=== PATIENT | male | born 1930 | race Caucasian/White ===

== ENCOUNTER 2016-09-09 12:43 | Emergency (ER) | payer MEDICARE, OTHER ==
[~2016-09-09] VITALS: Ht 172.7 cm; Wt 71.8 kg
[~2016-09-09 12:43] MED LIST: ASPI81TA40 PO; CLOP75TA14 PO; FOLI0.4T2 PO; GLU500 PO; HYDR25TA4 PO; LIP20 PO; LOPRESSOR25 MG PO; MECL-114 PO; NITR0.4T SL; OMEG-5 PO; OMEP20TA86 PO; QUIN10TA PO; advil PO
[2016-09-09 12:44] VITALS: BP 164/74; PULSE 51; RESP 20; O2SAT 95
[2016-09-09 13:02] VITALS: BP 164/67; PULSE 56; RESP 19; O2SAT 99
--- NOTE | 2016-09-09 13:11 | ED.REPORT ---
HPI-Trauma Minor / Fall Date of Service Sep 09, 2016 ED Provider: Ruddy Khan DO The patient is an 86 year old male who presents to the emergency department after he had a ground level fall. The patient was walking when he tripped, and fell backwards over a curb. He hit his head and believes he did lose consciousness. He complains of lower back pain and right elbow pain/swelling. He was able to get himself up and drive home. He denies any other injuries or trauma. He denies dizziness, lightheadedness, numbness, weakness. He is not currently on blood thinners. Nursing Notes Stated Complaint: FALL/HEAD INJURY Chief Complaint: Head, Face, Neck Trauma Nursing Notes Reviewed: Yes Allergies: Coded Allergies: Penicillins (Verified Allergy, Severe, HIVES, 09/09/16) Scheduled ([advil]) 400 MG PO DAILY Aspirin-Expunged Drug, Do Not Renew! (Aspirin-Expunged Drug, Do Not Renew!) 81 Mg Tab.chew 81 MG PO DIRECTED Take every other morning on even number days Atorvastatin (Lipitor) 10 Mg Tab 10 MG PO DAILY Clopidogrel-Expunged Drug, Do Not Renew! (Plavix-Expunged Drug, Do Not Renew!) 75 Mg Tablet 75 MG PO DIRECTED take every morning on odd number days Cyanocobalamin (Vitamin B-12) (Vitamin B-12) 1,000 Mcg Tablet 1,000 MCG PO DIRECTED take in the morning on M,W,F Folic Acid-Expunged Drug, Do Not Renew! (Folic Acid-Expunged Drug, Do Not Renew! ) 0.4 Mg Tablet 0.4 MG PO DAILY Hydrochlorothiazide (Hydrochlorothiazide) 12.5 Mg Tablet 12.5 MG PO DAILY Metformin (Metformin) 500 Mg Tablet 1,000 MG PO QPM Metformin-Expunged Drug, Do Not Renew! (Metformin-Expunged Drug, Do Not Renew!) 500 Mg Tablet 500 MG PO MORNING Metoprolol Tart-Expunged Drug, Do Not Renew! (Metoprolol Tart-Expunged Drug, Do Not Renew!) 25 Mg Tab 25 MG PO DAILY [place]-3/Dha/Epa/Fish Oil-Expunged Drug, Do No (Fish Oil 1,000 Mg-Expunged Drug, Do Not Renew) 1 Each Capsule 1 EACH PO DAILY Quinapril-Expunged Drug, Do Not Renew! (Quinapril-Expunged Drug, Do Not Renew!) 10 Mg Tablet 10 MG PO DAILY Scheduled PRN ([alavert]) 10 MG PO DAILY PRN PRN For Congestion Meclizine (Bonine) 25 Mg Tab.chew 25 MG PO Q8H PRN PRN For Dizziness Melatonin/Pyridoxine (Melatonin 3 mg Tablet) 1 Each Tablet 1 EACH PO QPM PRN PRN Insomnia Nitroglycerin-Expunged Drug, Do Not Renew! (Nitroglycerin SL-Expunged Drug, Do Not Renew!) 0.4 Mg Tab.subl 0.4 MG SL PRN Phenylephrine/Dm/Acetaminop/GG (Delsym Cough+Cold Daytime Liq) 180 Ml Liquid 180 ML PO PRN For Cough Ranitidine (Zantac) 150 Mg Tablet 150 MG PO DAILY PRN PRN For Dyspepsia or Heartburn General Time Seen by MD: 13:08 Chief Complaint Fall, Head injury Hx Obtained From: Patient, Spouse Arrived By: Walk-in Onset Occurred: 1 - 4 hours ago Symptom Duration: Since onset Caused by: Fall on ground Location: Back Elbow right Head Quality: Painful Severity: Current: Severe Severity: Maximum: Moderate Recent Healthcare: No recent doctor visit, No recent hospitalization Similar Sx Previous: No Past Medical History Past Medical History Myocardial Infarction PAD Reports: Coronary artery disease, Diabetes mellitus, GERD, Hypertension Past Surgical History Left leg stent Angiogram x2 Family History Noncontributory Smoking History Unknown if Ever Smoker Social History Other Social History: Good social support, , Local resident Ambulatory Status Independent Review of Systems Musculoskeletal: Reports: Back pain, Joint pain Neurologic: Reports: Change LOC, Headache, Denies: Dizziness, Focal weakness, Lightheaded, Numbness, Problem walking Complete sys rev & neg: except as marked. Physical Exam Initial Vital Signs Vital Signs (First) Date Time Temp Pulse Resp B/P Pulse Ox O2 Delivery O2 Flow Rate FiO2 09/09/16 12:44 36.2 51 20 164/74 95 Room Air Initial VS: Reviewed ENT: Mucous membranes moist, Conjunctiva normal, No scleral icterus Respiratory: Breath sounds normal, Clear to auscultation, No respiratory distress Cardiovascular: Regular rate & rhythm, Heart sounds normal, Intact distal pulses Abdomen / GI: Soft, Non-tender, No guarding, No rebound, No distention Extremities: Vascular intact, Neuro intact, No swelling, No tenderness Skin: Warm, Dry, No cyanosis Psychiatric: Mood/affect normal, Behavior normal, Normal thought content General/Constitutional: Awake, Alert, No acute distress, Cooperative Neck: Atraumatic, Supple, Full range of motion, No midline vertebral tend Head / Eyes: Normocephalic, PERRL, EOMI 3 cm hematoma to midline occipital area Back: Full range of motion, Painless range of motion, No midline vertebral tend He complains of lower back pain Upper Extremity / MS: Neurologic intact, Vascular intact right traumatic olecranon bursitis Neurologic: Oriented X3, Speech NL, No motor deficits, No sensory deficits, CN II - XII intact, Cerebellar NL, Memory NL, Gait NL Interpretation & Diagnostics X-Ray Interpretation X-Ray Ordered: Elbow right Interpretation / Wet Read by: Wet read ED physician Interpretation: Normal exam, No fracture/dislocation Study Performed: Lumbar spine Interpretation / Wet Read by: Wet read ED physician Interpretation: Normal exam, No fracture/dislocation CT Head Interpretation IMPRESSION: No trauma found. Mild microvascular atherosclerotic change expected for age. Dictated by: Herminio Reyes M.D. on 09/09/2016 at 13:41 Study: Head CT no contrast Interpretation / Wet Read by: Interpret - Radiologist Re-Eval/Medical Decision Med Decision/Clinical Course Mechanical fall, no labs were ordered as this sounded very much mechanical and the patient is otherwise at baseline. Imaging studies failed to show any angina by fracture. He has olecranon bursitis which is traumatic and not infectious. No identifiable suturable lesions. He will be discharged in stable condition with return precautions. Source of Hx: Old records, Family Re-Evaluation/Progress #1: Time of Eval: 14:20 Re-Evaluation/Progress Note: Rechecked the patient. Discussed head CT results. Re-Evaluation/Progress #2: Time of Eval: 15:16 Re-Evaluation/Progress Note: Rechecked the patient. Discussed plan for discharge. All questions were addressed. Counseled Regarding: Diagnosis, Lab results, Need for follow-up, When/why to return to ED Discharge & Departure Impression: Primary Impression: Fall Encounter type: initial encounter Qualified Code: W19.XXXA - Unspecified fall, initial encounter Additional Impressions: Hematoma of occipital surface of head Encounter type: initial encounter Qualified Code: S00.83XA - Contusion of other part of head, initial encounter Olecranon bursitis of right elbow Low back pain Chronicity: acute Back pain laterality: bilateral Sciatica presence: without sciatica Qualified Code: M54.5 - Low back pain Disposition: Home Discharge Condition All VS Reviewed: Yes Condition: Stable Patient Instructions: Contusions in Adults (ED), Elbow Bursitis (ED) Additional Instructions: Thank you for entrusting us with your care today. Your labs, head CT, elbow x- ray, and lumbar spine x-ray, today are reassuring. Use Tylenol as needed for pain. Followup with your regular doctor next week for re-evaluation. Please return to the emergency department if you develop increased head pain, numbness , weakness, speech changes, vision changes, or any other new or concerning symptoms. Referrals: Tobias Cha MD (PCP) Scribe Attestation Portions of this note were transcribed by Spring Michelle. I, Dr. Khan personally performed the history, physical exam and medical decision-making; I reviewed and confirmed the accuracy of the information in the transcribed note. Signed by: Missy Francis, 09/09/2016 and 1520. copies to: Tobias Cha MD, Timothy S DO Sep 09, 2016 13:11 Spring Michelle Sep 09, 2016 13:15
[2016-09-09] MEDS ORDERED: RANI150T11 PO (13:26)
[2016-09-09] MEDS ORDERED: PHEN180L2 PO (13:26)
[2016-09-09] MEDS ORDERED: CYAN10008 PO (13:26)
[2016-09-09] MEDS ORDERED: ATRV10T PO (13:26)
[2016-09-09] MEDS ORDERED: HYDR12.55 PO (13:26)
[2016-09-09] MEDS ORDERED: MELA1TAB11 PO (13:26)
[2016-09-09] MEDS ORDERED: alavert PO (13:26)
[2016-09-09] MEDS ORDERED: METF500T4 PO (13:26)
--- NOTE | 2016-09-09 13:43 | DRSVH ---
PROCEDURE: CT BRAIN WITHOUT CONTRAST ([id number]) INDICATIONS: head truama TECHNIQUE: Noncontrast 4.5 mm thick angled axial sections acquired from the foramen magnum to the vertex, with c oronal reformats. COMPARISON: None. FINDINGS: Image quality: Excellent. CSF spaces: Basal cisterns are patent. No extra-axial fluid collections. The ventricles are symmet shaquille in size and shape. Brain: No intracranial bleeds or masses. There is cerebral volume loss for age, with resultant vent ricular and sulcal prominence. There are periventricular and deep white matter chronic small vessel ischemic changes. There is intracranial internal carotid artery atherosclerosis. Skull and face: Calvarium and visualized facial bones appear intact, without suspicious lesions. Sinuses: Visualized sinuses and mastoids are clear. IMPRESSION: No trauma found. Mild microvascular atherosclerotic change expected for age. Dictated by: Herminio Reyes M.D. on 09/09/2016 at 13:41 Approved by: Herminio Reyes M.D. on 09/09/2016 at 13:42
[2016-09-09 14:45] VITALS: BP 148/58; PULSE 56; RESP 14; O2SAT 96
--- NOTE | 2016-09-09 15:17 | DRSVH ---
PROCEDURE: X-RAY LUMBAR SPINE, 2 OR 3 VIEW INDICATIONS: fall, lumbosacral pain TECHNIQUE: 3 views of the lumbar spine were acquired. COMPARISON: None. FINDINGS: Bones: 5 [id number] vertebrae are present. Trace multilevel retrolisthesis. Multilevel disc de generation, moderate to severe than the mid and lower lumbar spine. Moderate L5-S1 facet joint arthr opathy. No vertebral body compression fractures. No suspicious bony lesions. Soft tissues: Overlying bowel gas pattern is normal. No suspicious soft tissue calcifications. Vas cular calcifications indicate atherosclerosis. IMPRESSION: 1. Multilevel degenerative change. Dictated by: Bin Chaudhary [facility] Interpreted: Herminio Reyes MD on 09/09/2016 at 15:16 Transcribed by: ELLIOTT on 09/09/2016 at 15:17 Approved by: Herminio Reyes M.D. on 09/10/2016 at 10:47
--- NOTE | 2016-09-09 15:18 | DRSVH ---
PROCEDURE: X-RAY RIGHT ELBOW COMPLETE, MINIMUM THREE VIEWS ([id number]) INDICATIONS: trauma/pain TECHNIQUE: 3 views of the elbow were acquired. COMPARISON: None. FINDINGS: Bones: No fractures or dislocations. No suspicious bony lesions. Soft tissues: No elbow joint effusion. No suspicious soft tissue calcifications. Posterior soft ti ssue swelling and hematoma cannot be excluded. IMPRESSION: No displaced fracture seen. If there is continued pain, followup exam or additional elis ging such as MRI or CT could be performed for further assessment. Dictated by: Bin Chaudhary RR Interpreted: Herminio Reyes MD on 09/09/2016 at 15:17 Transcribed by: ELLIOTT on 09/09/2016 at 15:18 Approved by: Herminio Reyes M.D. on 09/10/2016 at 10:47
== END 2016-09-09 15:38 | disposition home or self-care (01) ==
LOC: SED 12:43
DX: S00.83XA Contusion of other part of head, initial encounter (principal); M70.21 Olecranon bursitis, right elbow; M54.5 Low back pain; W01.198A Fall on same level from slipping, tripping and stumbling with subsequent striking against other object, initial encounter; W10.1XXA Fall (on)(from) sidewalk curb, initial encounter; Y92.248 Other public administrative building as the place of occurrence of the external cause; Y93.01 Activity, walking, marching and hiking; Y99.8 Other external cause status; I25.2 Old myocardial infarction; I25.10 Atherosclerotic heart disease of native coronary artery without angina pectoris; E11.9 Type 2 diabetes mellitus without complications; K21.9 Gastro-esophageal reflux disease without esophagitis; I10 Essential (primary) hypertension; Z95.818 Presence of other cardiac implants and grafts; Z79.82 Long term (current) use of aspirin; Z79.84 Long term (current) use of oral hypoglycemic drugs; Z79.02 Long term (current) use of antithrombotics/antiplatelets; Z88.0 Allergy status to penicillin